=== PATIENT | male | born 1975 | race Caucasian/White ===

== ENCOUNTER → 2016-10-13 | Day surgery (SDC) | payer OTHER ==
[~2016-10-13] MED LIST: DIVA500T3 PO; FLUO20CA35 PO; MELA5CAP PO; MULT-506 PO; OMEP20TA PO; TOPI100T45 PO
== END | disposition home or self-care (01) ==
LOC: C.GI 11:26
PROVIDERS: ATTEND Internal Medicine Gastroenterology
DX: K92.1 Melena (principal); Z53.9 Procedure and treatment not carried out, unspecified reason; R10.84 Generalized abdominal pain

== ENCOUNTER → 2016-10-19 | Day surgery (SDC) | payer OTHER ==
[2016-10-18 09:37] VITALS: Ht 170.2 cm; Wt 82.7 kg
[~2016-10-19] VITALS: Ht 170.2 cm; Wt 82.7 kg
[~2016-10-19] MED LIST changes: +EpHEDrine SULFATE 50MG/5ML SYR ONE; +LIDOCAINE HCL 2% 2 ML VIAL (20MG/ML) ONE; +MIDAZOLAM HCL 1 MG/ML 2ML VIAL ONE; +PROPOFOL IV EMULSION 10 MG/ML 20 ML VIAL IV ONE; +SODIUM CHLORIDE 0.9% 500ML 500 ML IV ONE
--- NOTE | 2016-10-19 14:11 | Endo History and Physical ---
History & Physical Date of Service: October 19, 2016. Chief Complaint: rectal bleeding Referring Physician: Dr Borges History of Present Illness Rectal bleeding Past Surgical History Hx Cardiac Surgery: No Hx Internal Defibrillator: No Hx Pacemaker: No Hx Abdominal Surgery: No Hx of Implantable Prosthesis: No Hx Post-Op Nausea and Vomiting: No Hx Cancer Surgery: No Hx Thoracic Surgery: No Hx Orthopedic: No Hx Urinary Tract Surgery: No Family History None Social History Smoking Status: Current Some Day Smoker Hx Substance Use: Yes (QUIT 2005) Hx Alcohol Use: Yes (2-3 DRINKS/WEEK) Allergies Coded Allergies: Latex1 -Allergic Contact Dermititis (Verified Allergy, Unknown, RASH, 10/18) Silver Sulfadiazine (Verified Allergy, Unknown, BLISTERS, 10/18/16) Current Medications Reported Home Medications Medications Dose Route/Sig Max Daily Dose Days Date Category Melatonin 5 Mg Cap 1 Cap PO HS PRN 10/18/16 Reported Multivitamin (Multivitamins) Tab 1 Tab PO DAILY 10/18/16 Reported Prozac (Fluoxetine HCl) 20 Mg Cap 20 Mg PO QAM 10/18/16 Reported Omeprazole 20 Mg Tab 40 Mg PO QAM 10/18/16 Reported Topamax (Topiramate) 100 Mg Tab 100 Mg PO DAILY PRN 10/18/16 Reported Depakote Er (Divalproex Sodium) 500 Mg Tab 1.5 Tabs PO BID 10/18/16 Reported Vital Signs Weight (Kilograms): 82.73 Height (Feet): 5 Height (Inches): 7 Date Time Temp Pulse Resp B/P Pulse Ox O2 Delivery O2 Flow Rate FiO2 10/19/16 12:54 36.8 56 20 120/77 97 Room Air Physical Exam General Appearance: WD/WN, no apparent distress Respiratory/Chest: Auscultation: breath sounds normal, no wheezing Cardiovascular: Heart Auscultation: RRR, no murmurs Abdomen: Inspection & Palpation: soft, no tenderness, guarding & rebound Assessment and Plan Colonoscopy today.
--- NOTE | 2016-10-19 14:43 | GI REPORT ---
Procedure Date: 10/19/2016 1:58 PM Procedure: Colonoscopy Indications: Rectal bleeding Medicines: Monitored Anesthesia Care Complications: No immediate complications. Estimated blood loss: None. Estimated Blood Loss: Estimated blood loss: none. Procedure: Pre-Anesthesia Assessment: - Prior to the procedure, a History and Physical was performed, and patient medications, allergies and sensitivities were reviewed. The patient's tolerance of previous anesthesia was reviewed. - ASA Grade Assessment: II - A patient with mild systemic disease. After I obtained informed consent, the scope was passed under direct vision. Throughout the procedure, the patient's blood pressure, pulse, and oxygen saturations were monitored continuously. The Scope was introduced through the anus and advanced to the terminal ileum, with identification of the appendiceal orifice and IC valve. The colonoscopy was performed with ease. The patient tolerated the procedure well. The quality of the bowel preparation was good. The bowel preparation used was split dose MIralax. Findings: Inflammation characterized by congestion (edema), friability and granularity was found in the distal rectum and in the cecum around the appendiceal orifice and in a patch on the ileocecal valve. The area from proximal rectum to ascending colon was spared. This was moderate in severity. Biopsies were taken with a cold forceps for histology from the cecum, distal rectum, and intervening colon. The terminal ileum appeared normal. Impression: - Ulcerative proctitis with periappendical patch. Biopsied. - The examined portion of the ileum was normal. Recommendation: - Use Canasa 1000 mg suppository 1 per rectum QHS. - Refer to a business machines teacher at appointment to be scheduled. Kemar Meraz M.D. Kemar Meraz MD 10/19/2016 2:42:39 PM This report has been signed electronically. Note Initiated On: 10/19/2016 1:58 PM I attest to the content of the Intraoperative Record and orders documented therein, exceptions below
--- NOTE | 2016-10-19 14:46 | Discharge Instructions ---
Endoscopy Patient Instructions Date / Procedure(s) Performed October 19, 2016. Colonoscopy Allergy Information Coded Allergies: Latex1 -Allergic Contact Dermititis (Verified Allergy, Unknown, RASH, 10/18) Silver Sulfadiazine (Verified Allergy, Unknown, BLISTERS, 10/18/16) Discharge Date / Findings October 19, 2016. Ulcerative proctitis Medication Instructions Restart Stopped Medication(s): Start Canasa suppositories as prescribed. Resume all medications today. Avoid nonsteroidal antiinflammatory medications (Aleve, Advil) Provider Instructions Activity Restrictions - No exercising or heavy lifting for 24 hours. - Do not drink alcohol the day of the procedure. - Do not drive a car or operate machinery until the day after the procedure. - Do not make any important decisions or sign important papers in 24 hours after the procedure. Following Day: - Return to full activity which may include returning to work/school. Diet Start your diet with liquids and light foods (jello, soup, juice, toast). Then eat your usual diet if not nauseated. Treatment For Common After Affects For mild abdominal pain, bloating, or excessive gas: - Rest - Eat lightly - Lie on right side Follow-Up Information Follow-up with Dr Borges as scheduled Anesthesia Information What You Should Know You have had a procedure that required some medicine to reduce anxiety and discomfort. This treatment is called moderate sedation. After receiving the treatment, you may be sleepy, but you will be able to breathe on your own. The effects of the treatment may last for several hours. Follow these instructions along with Activity/Diet recommendations noted above: * Do NOT do anything where dizziness or clumsiness would be dangerous. * Rest quietly at home today, then you can be up and about tomorrow. * Have a responsible person stay with you the rest of today. * You may have had an I.V. today. If so, you may take the dressing off later today. Recommendations Call your doctor if: * Trouble breathing * Continuous vomiting for more than 24 hours * Temperature above 101 degrees * Severe abdominal pain or bloating * Pain not relieved by pain medicine ordered * There is increased drainage or redness from any incision * A large amount of rectal bleeding greater than 2-3 tablespoons. (If you had a polyp/s removed or have hemorrhoids, a small amount of blood - from the rectum is to be expected.) * You have any unanswered questions or concerns. IN THE EVENT OF A SERIOUS EMERGENCY, GO TO THE NEAREST EMERGENCY ROOM Your discharge instructions were prepared by provider Kemar Meraz. Patient Instructions Signature Page Vish Pimentel Patient (or Guardian) Signature/Date: I have read and understand the instructions given to me by my caregivers. Caregiver/RN/Doctor Signature/Date: The above-named patient and/or guardian has received patient instructions on this date. + Original Patient Signature Page (only) stays with chart. Please make copy for patient.
--- NOTE | 2016-10-19 14:56 | Anesthesiology Progress Note ---
Anesthesia Post Op Note Date & Time October 19, 2016 at 14:56 Vital Signs Pain Intensity: 5 Vital Signs Past 12 Hours Date Time Temp Pulse Resp B/P Pulse Ox O2 Delivery O2 Flow Rate FiO2 10/19/16 12:54 36.8 56 20 120/77 97 Room Air Notes Mental Status: alert / awake / arousable, participated in evaluation Pt Amnestic to Procedure: Yes Nausea / Vomiting: adequately controlled Pain: adequately controlled Airway Patency, RR, SpO2: stable & adequate BP & HR: stable & adequate Hydration State: stable & adequate Anesthetic Complications: no major complications apparent
[2016-10-19 15:17] VITALS: BP 114/68; PULSE 58; O2SAT 99
== END | disposition home or self-care (01) ==
LOC: C.GI 12:24
PROVIDERS: ATTEND Internal Medicine Gastroenterology
DX: K62.5 Hemorrhage of anus and rectum (principal); K51.20 Ulcerative (chronic) proctitis without complications; F17.200 Nicotine dependence, unspecified, uncomplicated; Z86.79 Personal history of other diseases of the circulatory system